=== PATIENT | female | born 1990 | race Caucasian/White ===

== ENCOUNTER 2017-02-04 20:01 | Emergency (ER) | payer MEDICAID ==
[2017-02-04 20:21] VITALS: BP 147/94
--- NOTE | 2017-02-04 20:37 | EDM.PDOC ---
[id number]: BACK PAIN Time Seen by Provider: 02/04/17 20:10 Source of Information: Reports: Patient History Limitations: Reports: No Limitations - History of Present Illness INITIAL COMMENTS - FREE TEXT/NARRATIVE: 18-year-old female with an exacerbation of chronic low back pain. She is moving , has been more active over the past several days and now has increased pain. She's been in the clinic several times, has had orthopedic consultation, MRI of her back, and has a neurosurgical consultation pending for a herniated disc in her back at the L5-S1 level. Some radiation of pain to the left leg. She is currently taking almost maximum doses of gabapentin and tramadol, although she didn't mention the tramadol to nursing. She is on a pain contract with the clinic. Onset: Gradual Severity: Moderate Associated Symptoms: Denies: Fever/Chills, Headaches, Weakness back pain Pain Score (Numeric/FACES): 8 - Related Data Allergies Allergy/AdvReac Type Severity Reaction Status Date / Time No Known Allergies Allergy Verified 02/04/17 20:53 Home Meds: Home Meds Gabapentin [Neurontin] 600 mg PO TID 10/06/13 [History] Nicotine [Nicoderm CQ] 1 patch TD DAILY 07/28/16 [History] Amitriptyline [Elavil] 50 mg PO BEDTIME 07/31/16 [History] Citalopram Hydrobromide [Celexa] 20 mg PO DAILY 09/06/16 [History] Past Medical History Respiratory History: Reports: Bronchitis, Recurrent Gastrointestinal History: Reports: None Genitourinary History: Reports: UTI, Recurrent Other Genitourinary History: hemo. 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 - Infectious Disease History Infectious Disease History: Reports: Chicken Pox - Past Surgical History HEENT Surgical History: Reports: Oral Surgery, Tonsillectomy Female Surgical History: Reports: Section, D&C, Dilitation & Evacuation, Tubal Ligation Social & Family History - Family History Family Medical History: Noncontributory - Tobacco Use Smoking Status *Q: Current Every Day Smoker Years of Tobacco use: 8 Packs/Tins Daily: 0.5 Used Tobacco, but Quit: No Second Hand Smoke Exposure: Yes - Caffeine Use Caffeine Use: Reports: Coffee - Alcohol Use Days Per Week of Alcohol Use: 0 - Recreational Drug Use Recreational Drug Use: No Drug Use in Last 12 Months: No ED ROS GENERAL - Review of Systems Review Of Systems: See Below Constitutional: Denies: Fever, Chills Respiratory: Denies: Shortness of Breath GI/Abdominal: Denies: Abdominal Pain, Nausea, Vomiting : Reports: No Symptoms Skin: Reports: No Symptoms ED EXAM,LOWER BACK PAIN/INJURY - Physical Exam Exam: See Below Exam Limited By: No Limitations General Appearance: Alert, No Apparent Distress (While sitting still) Respiratory/Chest: No Respiratory Distress Back Exam: Paraspinal Tenderness (She reacts with tenderness to palpation over the lower lumbar spine bilaterally. No significant pain with rotation against resistance either direction.) Neurological: Alert, No Motor/Sensory Deficits DTR - Lower Extremities: 2+: Knee (R), Knee (L) Course - Vital Signs Last Recorded V/S: Last Vital Signs Temp 98.9 F 02/04/17 20:11 Pulse 96 02/04/17 20:11 Resp 16 02/04/17 20:11 BP 147/94 H 02/04/17 20:11 Pulse Ox 99 02/04/17 20:11 - Re-Assessments/Exams Free Text/Narrative Re-Assessment/Exam: 02/04/17 20:35 Recommended a few days of prednisone pending her neurosurgical consultation. I will provide her with some Flexeril along with the prednisone, but I could not offer her stronger pain medication because her contract. She didn't mention the tramadol but when I asked her she had some left she said she had "a few". 02/04/17 20:36 Recommend taking 50 mg of prednisone with each morning meal for the next 3-5 days. Continue with her other current medications and one Flexeril up to 3 times daily. Followup with her primary provider and consulting physicians as scheduled. Departure - Departure Time of Disposition: 21:40 Disposition: Home, Self-Care 01 Condition: good Clinical Impression: Acute exacerbation of chronic low back pain - Discharge Information Instructions: Back Pain, Adult Referrals: Leora Wagoner NP [Primary Care Provider] - Forms: ED Department Discharge Care Plan Goals: Continue with her current medications. Take 5 pills of prednisone with your morning meal for the next 3-6 days. 1 Flexeril every 6-8 hours as needed. Recheck with neurosurgery as scheduled, or return to the clinic sooner if not improving satisfactorily. Continue with activity as tolerated including physical therapy.
== END 2017-02-04 21:03 | disposition home or self-care (01) ==
LOC: JP.ED 20:01
DX: M54.5 Low back pain (principal); G89.29 Other chronic pain; F41.9 Anxiety disorder, unspecified; F32.9 Major depressive disorder, single episode, unspecified; F17.210 Nicotine dependence, cigarettes, uncomplicated; Z98.51 Tubal ligation status; Z98.890 Other specified postprocedural states
CPT/HCPCS: 99283

== ENCOUNTER 2017-03-01 12:51 | Emergency (ER) | payer MEDICAID ==
[2017-03-01 13:02] VITALS: BP 153/95
--- NOTE | 2017-03-01 13:35 | EDM.PDOC ---
ED HPI GENERAL MEDICAL PROBLEM - General Chief Complaint: Back Pain or Injury Stated Complaint: LOW BACK PAIN Time Seen by Provider: 03/01/17 13:24 Source of Information: Reports: Patient, RN Notes Reviewed History Limitations: Reports: No Limitations - History of Present Illness INITIAL COMMENTS - FREE TEXT/NARRATIVE: 26-year-old female presents emergency department today with increasing low back pain she has a known history of chronic back pain has had an MRI follows with neurosurgery and is set up to see pain management next week. Her issue she recently went to physical therapy she's having increasing pain and she is out of her tramadol and she is unable to to get refills of her tramadol until she is evaluated by pain management from her primary care Lower Back Pain Score (Numeric/FACES): 8 - Related Data Allergies Allergy/AdvReac Type Severity Reaction Status Date / Time No Known Allergies Allergy Verified 03/01/17 13:11 Home Meds: Home Meds Gabapentin [Neurontin] 600 mg PO QID 10/06/13 [History] Nicotine [Nicoderm CQ] 1 patch TD DAILY 07/28/16 [History] Amitriptyline [Elavil] 50 mg PO BEDTIME 07/31/16 [History] Citalopram Hydrobromide [Celexa] 20 mg PO DAILY 09/06/16 [History] traMADol [Ultram] 1 tab PO Q6H 02/26/17 [History] Etodolac 1 tab PO BID 03/01/17 [History] Past Medical History Respiratory History: Reports: Bronchitis, Recurrent Genitourinary History: Reports: UTI, Recurrent Other Genitourinary History: hemo. 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 - Infectious Disease History Infectious Disease History: Reports: Chicken Pox - Past Surgical History Head Surgeries/Procedures: Reports: None HEENT Surgical History: Reports: Oral Surgery, Tonsillectomy Female Surgical History: Reports: Section, D&C, Dilitation & Evacuation, Tubal Ligation Dermatological Surgical History: Reports: None Social & Family History - Family History Family Medical History: Noncontributory - Tobacco Use Smoking Status *Q: Light Tobacco Smoker Years of Tobacco use: 8 Packs/Tins Daily: 0.2 Used Tobacco, but Quit: No Second Hand Smoke Exposure: Yes - Caffeine Use Caffeine Use: Reports: Coffee - Alcohol Use Days Per Week of Alcohol Use: 0 - Recreational Drug Use Recreational Drug Use: No Drug Use in Last 12 Months: No ED ROS GENERAL - Review of Systems Review Of Systems: See Below Respiratory: Reports: No Symptoms Cardiovascular: Reports: No Symptoms Endocrine: Reports: No Symptoms GI/Abdominal: Reports: No Symptoms Musculoskeletal: Reports: Back Pain ED EXAM,LOWER BACK PAIN/INJURY - Physical Exam Exam: See Below Exam Limited By: No Limitations General Appearance: Alert, WD/WN, No Apparent Distress Back Exam: Normal Inspection, Full Range of Motion, Muscle Spasm, Paraspinal Tenderness, Vertebral Tenderness. No: CVA Tenderness (R), CVA Tenderness (L) Course - Vital Signs Last Recorded V/S: Last Vital Signs Temp 98.7 F 03/01/17 13:10 Pulse 121 H 03/01/17 13:10 Resp 14 03/01/17 13:10 BP 153/95 H 03/01/17 13:10 Pulse Ox 99 03/01/17 13:10 Departure - Departure Time of Disposition: 13:39 Disposition: Home, Self-Care 01 Condition: Good Clinical Impression: Discogenic low back pain - Discharge Information Forms: ED Department Discharge Additional Instructions: Continue using your prescribed medications, use Ultram as needed for right to pain, try the baclofen as needed for muscle spasm. Please keep your follow-up appointment with the pain clinic call return to the emergency department with worsening of symptoms - Assessment/Plan Plan: Assessment Acuity = chronic Site and laterality = low back pain Etiology = secondary to disc bulge L5-S1 per MRI Manifestations = none Location of injury = Home Lab values = none Plan Granted prescription for tramadol and baclofen recommend she keep appointment with pain management Patient was in agreement with the plan all questions were answered, they were instructed to return to the emergency department or call for worsening symptoms. This note was dictated using [employer] voice recognition software please call with any questions.
== END 2017-03-01 13:50 | disposition home or self-care (01) ==
LOC: JP.ED 12:51
DX: M54.5 Low back pain (principal); G43.909 Migraine, unspecified, not intractable, without status migrainosus; F41.9 Anxiety disorder, unspecified; F32.9 Major depressive disorder, single episode, unspecified; F43.10 Post-traumatic stress disorder, unspecified; F17.210 Nicotine dependence, cigarettes, uncomplicated; Z98.890 Other specified postprocedural states; Z79.899 Other long term (current) drug therapy
CPT/HCPCS: 99283

== ENCOUNTER 2017-08-24 16:16 | Emergency (ER) | payer MEDICAID ==
[2017-08-24 16:52] VITALS: BP 158/98
--- NOTE | 2017-08-24 18:22 | EDM.PDOC ---
ED HPI GENERAL MEDICAL PROBLEM - General Chief Complaint: Back Pain or Injury Stated Complaint: LOWER BACK/HIP PAIN Time Seen by Provider: 08/24/17 18:00 Source of Information: Reports: Patient History Limitations: Reports: No Limitations - History of Present Illness INITIAL COMMENTS - FREE TEXT/NARRATIVE: 18-year-old female with chronic low back pain, pain is reasonably maintained with tramadol 50 mg twice daily. She has had a pain contract to the clinic for the last 6 months and according to the COST COORDINATOR she has followed the contract fairly closely. Her primary provider however has resigned from her presentation, she is seen to other providers in the last 4 days and neither would prescribe tramadol. She is in today wondering what to do. Her back is sore but not acutely worse. No urinary symptoms. Onset: Unknown/Unsure Severity: Mild Back Pain Score (Numeric/FACES): 8 - Related Data Allergies Allergy/AdvReac Type Severity Reaction Status Date / Time No Known Allergies Allergy Verified 08/24/17 17:36 Home Meds: Home Meds Gabapentin [Neurontin] 600 mg PO QID 10/06/13 [History] Nicotine [Nicoderm CQ] 1 patch TD DAILY 07/28/16 [History] Amitriptyline [Elavil] 50 mg PO BEDTIME 07/31/16 [History] Citalopram Hydrobromide [Celexa] 20 mg PO DAILY 09/06/16 [History] traMADol [Ultram] 1 tab PO Q6H 02/26/17 [History] Etodolac 1 tab PO BID 03/01/17 [History] tiZANidine HCl [Zanaflex] 1 tab PO ASDIRECTED 08/24/17 [History] Past Medical History Respiratory History: Reports: Bronchitis, Recurrent Gastrointestinal History: Reports: None Genitourinary History: Reports: UTI, Recurrent Other Genitourinary History: hemo. 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 - Infectious Disease History Infectious Disease History: Reports: Chicken Pox - Past Surgical History HEENT Surgical History: Reports: Oral Surgery, Tonsillectomy Female Surgical History: Reports: Section, D&C, Dilitation & Evacuation, Tubal Ligation Social & Family History - Family History Family Medical History: Noncontributory - Tobacco Use Smoking Status *Q: Light Tobacco Smoker Years of Tobacco use: 8 Packs/Tins Daily: 0.5 Used Tobacco, but Quit: No Second Hand Smoke Exposure: Yes - Caffeine Use Caffeine Use: Reports: Coffee - Alcohol Use Days Per Week of Alcohol Use: 0 - Recreational Drug Use Recreational Drug Use: No Drug Use in Last 12 Months: No ED ROS GENERAL - Review of Systems Review Of Systems: See Below Constitutional: Denies: Fever, Chills Respiratory: Denies: Shortness of Breath GI/Abdominal: Denies: Abdominal Pain Musculoskeletal: Reports: Back Pain Skin: Reports: No Symptoms Neurological: Reports: Other (Intermittent sciatic type pain on the left side) ED EXAM,LOWER BACK PAIN/INJURY - Physical Exam Exam: See Below Exam Limited By: No Limitations General Appearance: Alert, No Apparent Distress Respiratory/Chest: No Respiratory Distress Back Exam: Paraspinal Tenderness (She does have paraspinal tenderness over the lateral lower lumbar spine, fairly full range of motion with some moderate pulling sensation) Neurological: No Motor/Sensory Deficits Course - Vital Signs Last Recorded V/S: Last Vital Signs Temp 97.0 F 08/24/17 17:33 Pulse 96 08/24/17 17:33 Resp 16 08/24/17 17:33 BP 158/98 H 08/24/17 17:33 Pulse Ox 99 08/24/17 17:33 - Re-Assessments/Exams Free Text/Narrative Re-Assessment/Exam: 08/24/17 18:20 Reviewed COST COORDINATOR and the clinic records. Its unfortunate that another provider cannot take over this patient's care as was provided by her previous provider especially in light that she seems to have been following her contract. I did give her 15 tramadol to use up to twice daily and encouraged her to make them last as long as possible and continue to look for a primary provider that can help her. Departure - Departure Time of Disposition: 18:43 Disposition: Home, Self-Care 01 Condition: Good Clinical Impression: Discogenic low back pain - Discharge Information Instructions: Back Pain, Adult, [id number] Referrals: PCP,None [Primary Care Provider] - Forms: ED Department Discharge Care Plan Goals: Stay as active as possible, reconsider your physical therapy treatments and use tramadol as prescribed sparingly. Continue to search for a primary provider that is willing to continue your care.
== END 2017-08-24 18:43 | disposition home or self-care (01) ==
LOC: JP.ED 16:16
DX: M54.5 Low back pain (principal); F17.210 Nicotine dependence, cigarettes, uncomplicated; Z79.899 Other long term (current) drug therapy
CPT/HCPCS: 99283

== ENCOUNTER 2017-10-11 11:32 | Emergency (ER) | payer MEDICAID ==
[2017-10-11 11:47] VITALS: BP 142/100
--- NOTE | 2017-10-11 12:22 | EDM.PDOC ---
ED HPI GENERAL MEDICAL PROBLEM - General Chief Complaint: Back Pain or Injury Stated Complaint: BACK PAIN Time Seen by Provider: 10/11/17 11:50 Source of Information: Reports: Patient History Limitations: Reports: No Limitations - History of Present Illness INITIAL COMMENTS - FREE TEXT/NARRATIVE: 27-year-old female with chronic back pain, pain has been controlled with low- dose tramadol over the past year but she lost her provider. 44 doses were given to her by Dr. Sinclair a month ago, she was hoping to establish pain control with a chronic pain specialist on 27 September but didn't make her appointment. The pain is persistent, not worse but not better. It's very low in her back and radiates somewhat to the left buttock. No neurologic symptoms or radiculopathy. Onset: Unknown/Unsure Location: Reports: Back Quality: Reports: Ache, Burning Severity: Mild Worsens with: Reports: Movement Associated Symptoms: Denies: Fever/Chills, Headaches, Nausea/Vomiting, Shortness of Breath Lower Back Pain Score (Numeric/FACES): 9 - Related Data Allergies Allergy/AdvReac Type Severity Reaction Status Date / Time No Known Allergies Allergy Verified 10/11/17 11:47 Home Meds: Home Meds Gabapentin [Neurontin] 600 mg PO QID 10/06/13 [History] Nicotine [Nicoderm CQ] 1 patch TD DAILY 07/28/16 [History] Amitriptyline [Elavil] 25 mg PO BEDTIME 07/31/16 [History] traMADol [Ultram] 1 tab PO Q6H 02/26/17 [History] tiZANidine HCl [Zanaflex] 1 tab PO ASDIRECTED 08/24/17 [History] *Vitamin D PO WEEKLY 10/11/17 [History] Past Medical History Respiratory History: Reports: Bronchitis, Recurrent Gastrointestinal History: Reports: None Genitourinary History: Reports: UTI, Recurrent Other Genitourinary History: hemo. 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 - Infectious Disease History Infectious Disease History: Reports: Chicken Pox - Past Surgical History HEENT Surgical History: Reports: Oral Surgery, Tonsillectomy Female Surgical History: Reports: Section, D&C, Dilitation & Evacuation, Tubal Ligation Social & Family History - Family History Family Medical History: Noncontributory - Tobacco Use Smoking Status *Q: Unknown Ever Smoked Years of Tobacco use: 8 Packs/Tins Daily: 0.5 Used Tobacco, but Quit: No Second Hand Smoke Exposure: Yes - Caffeine Use Caffeine Use: Reports: Coffee - Alcohol Use Days Per Week of Alcohol Use: 0 - Recreational Drug Use Recreational Drug Use: No Drug Use in Last 12 Months: No ED ROS GENERAL - Review of Systems Review Of Systems: See Below Constitutional: Denies: Fever Respiratory: Denies: Shortness of Breath, Cough Cardiovascular: Denies: Chest Pain GI/Abdominal: Denies: Abdominal Pain, Nausea, Vomiting : Reports: No Symptoms Skin: Denies: Rash Neurological: Reports: No Symptoms ED EXAM,LOWER BACK PAIN/INJURY - Physical Exam Exam: See Below Exam Limited By: No Limitations General Appearance: Alert, No Apparent Distress Respiratory/Chest: No Respiratory Distress Cardiovascular: Tachycardia (What) Back Exam: Paraspinal Tenderness, Other (Tenderness to palpation over L4-L5 area into the left sacroiliac area). No: Vertebral Tenderness Course - Vital Signs Last Recorded V/S: Last Vital Signs Temp 98.1 F 10/11/17 11:45 Pulse 126 H 10/11/17 11:45 Resp 14 10/11/17 11:45 BP 142/100 H 10/11/17 11:45 Pulse Ox 100 10/11/17 11:45 - Re-Assessments/Exams Free Text/Narrative Re-Assessment/Exam: 10/11/17 12:31 Discussed her condition with Dr. Sinclair, and all so left the message to talk with Job Espinoza who was trying to get hold of the patient today. She is given 15 tramadol to take over the next 2 weeks until she can establish a provider or another source of treatment. Departure - Departure Time of Disposition: 12:31 Disposition: Home, Self-Care 01 Condition: Good Clinical Impression: Discogenic low back pain - Discharge Information Instructions: Back Pain, Adult, [id number] Referrals: PCP,None [Primary Care Provider] - Forms: ED Department Discharge Care Plan Goals: Take tramadol as prescribed, you need to establish a provider in the next 2 weeks if you want medications to continue.
== END 2017-10-11 12:32 | disposition home or self-care (01) ==
LOC: JP.ED 11:32
DX: M54.5 Low back pain (principal); F32.9 Major depressive disorder, single episode, unspecified; Z77.22 Contact with and (suspected) exposure to environmental tobacco smoke (acute) (chronic); Z79.899 Other long term (current) drug therapy
CPT/HCPCS: 99283

== ENCOUNTER 2019-03-12 16:06 | Emergency (ER) | payer MEDICAID ==
[2019-03-12 16:46] VITALS: BP 148/90; PULSE 106
[2019-03-12] MEDS ORDERED: Ketorolac 60 MG/2 ML SDV IM ONE (17:02)
--- NOTE | 2019-03-12 17:06 | EDM.PDOC ---
ED HPI GENERAL MEDICAL PROBLEM - General Chief Complaint: Back Pain or Injury Stated Complaint: LOWER BACK, HIP AND KNEE PAIN Time Seen by Provider: 03/12/19 16:58 Source of Information: Reports: Patient, RN Notes Reviewed History Limitations: Reports: No Limitations - History of Present Illness INITIAL COMMENTS - FREE TEXT/NARRATIVE: 28-year-old female presents emergency Department a complaint of low back pain, left is greater than the right side of the history of chronic back pain she has been using ibuprofen and Tylenol without much relief she like to try something else going on for several days Hip Pain Score (Numeric/FACES): 8 - Related Data Allergies Allergy/AdvReac Type Severity Reaction Status Date / Time No Known Allergies Allergy Verified 10/11/17 11:47 Home Meds: Home Meds Gabapentin [Neurontin] 600 mg PO QID 10/06/13 [History] Baclofen 10 mg PO TID 03/12/19 [History] Ibuprofen 800 mg PO ASDIRECTED PRN 03/12/19 [History] Past Medical History Respiratory History: Reports: Bronchitis, Recurrent Gastrointestinal History: Reports: None Genitourinary History: Reports: UTI, Recurrent Other Genitourinary History: hemo. 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 - Infectious Disease History Infectious Disease History: Reports: Chicken Pox - Past Surgical History Head Surgeries/Procedures: Reports: None HEENT Surgical History: Reports: Oral Surgery, Tonsillectomy Female Surgical History: Reports: Section, D&C, Dilitation & Evacuation, Tubal Ligation Dermatological Surgical History: Reports: None Social & Family History - Family History Family Medical History: Noncontributory - Tobacco Use Smoking Status *Q: Heavy Tobacco Smoker Years of Tobacco use: 9 Packs/Tins Daily: 1 - Caffeine Use Caffeine Use: Reports: Coffee - Recreational Drug Use Recreational Drug Use: No ED ROS GENERAL - Review of Systems Review Of Systems: See Below Constitutional: Reports: No Symptoms Respiratory: Reports: No Symptoms Cardiovascular: Reports: No Symptoms GI/Abdominal: Reports: No Symptoms Musculoskeletal: Reports: Back Pain Neurological: Reports: No Symptoms ED EXAM,LOWER BACK PAIN/INJURY - Physical Exam Exam: See Below Exam Limited By: No Limitations General Appearance: Alert, WD/WN, No Apparent Distress Respiratory/Chest: No Respiratory Distress Back Exam: Normal Inspection, Decreased Range of Motion, Muscle Spasm, Paraspinal Tenderness. No: Full Range of Motion, CVA Tenderness (R), CVA Tenderness (L), Vertebral Tenderness Course - Vital Signs Last Recorded V/S: Last Vital Signs Temp 98.3 F 03/12/19 16:52 Pulse 106 H 03/12/19 16:52 Resp 13 03/12/19 16:52 BP 148/90 H 03/12/19 16:52 Pulse Ox 98 03/12/19 16:52 - Orders/Labs/Meds Meds: Medications Discontinued Medications Generic Name Dose Route Start Last Admin Trade Name Eryn PRN Reason Stop Dose Admin Ketorolac Tromethamine 60 mg 03/12/19 17:02 Toradol IM 03/12/19 17:03 ONETIME ONE Departure - Departure Time of Disposition: 17:05 Disposition: Home, Self-Care 01 Condition: Fair Clinical Impression: Discogenic low back pain - Discharge Information Instructions: Chronic Back Pain Referrals: Emilio Sinclair Sr, MD [Primary Care Provider] - Additional Instructions: Continue to use Tylenol or ibuprofen for baseline pain control try the Ultram or tramadol for breakthrough pain, Please followup with your primary care provider in 3-5 days if not better, please call return to the emergency department with worsening of symptoms. - Assessment/Plan Plan: Assessment Acuity = acute on chronic Site and laterality = low back pain Etiology = etiology Manifestations = none Location of injury = Home Lab values = none Plan Provided a 60 mg Toradol IM 1 prescription written for Ultram one tab by mouth every 6 hours when necessary total #15 follow-up with primary care in the next 2 -5 days for reevaluation This note was dictated using [employer]Test recognition software please call with any questions on syntax or grammar.
== END 2019-03-12 17:13 | disposition home or self-care (01) ==
LOC: JP.ED 16:06
DX: G89.29 Other chronic pain (principal); M54.5 Low back pain; F41.9 Anxiety disorder, unspecified; F32.9 Major depressive disorder, single episode, unspecified; F17.210 Nicotine dependence, cigarettes, uncomplicated; Z79.899 Other long term (current) drug therapy
CPT/HCPCS: 96372; 99283; J1885

== ENCOUNTER 2019-05-30 10:03 | Emergency (ER) | payer MEDICAID ==
[2019-05-30 10:29] VITALS: BP 134/91; PULSE 123
--- NOTE | 2019-05-30 11:22 | EDM.PDOC ---
ED HPI GENERAL MEDICAL PROBLEM - General Chief Complaint: Back Pain or Injury Stated Complaint: BULGING DISC IN BACK Time Seen by Provider: 05/30/19 11:15 Source of Information: Reports: Patient History Limitations: Reports: No Limitations - History of Present Illness INITIAL COMMENTS - FREE TEXT/NARRATIVE: Honey is a 28 year old female, hx of chronic back pain reported bulging disc, here with increased pain to left lower back radiating down left leg. No weakness, no loss of bowel or bladder control. Pain not relieved with Tylenol. Henry works well but has none at home and PCP not in clinic today. Denies any new or significant trauma. Onset: Gradual Lower Back Pain Score (Numeric/FACES): 8 - Related Data Allergies Allergy/AdvReac Type Severity Reaction Status Date / Time No Known Allergies Allergy Verified 05/30/19 11:10 Home Meds: Home Meds Gabapentin [Neurontin] 600 mg PO QID 10/06/13 [History] Baclofen 10 mg PO TID 03/12/19 [History] Ibuprofen 800 mg PO ASDIRECTED PRN 03/12/19 [History] Past Medical History Respiratory History: Reports: Bronchitis, Recurrent Gastrointestinal History: Reports: None Genitourinary History: Reports: UTI, Recurrent Other Genitourinary History: hemo. 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 - Infectious Disease History Infectious Disease History: Reports: Chicken Pox - Past Surgical History HEENT Surgical History: Reports: Oral Surgery, Tonsillectomy Female Surgical History: Reports: Section, D&C, Dilitation & Evacuation, Tubal Ligation Social & Family History - Family History Family Medical History: Noncontributory - Tobacco Use Smoking Status *Q: Light Tobacco Smoker Years of Tobacco use: 10 Packs/Tins Daily: 0.5 - Caffeine Use Caffeine Use: Reports: Coffee - Recreational Drug Use Recreational Drug Use: No ED ROS GENERAL - Review of Systems Review Of Systems: ROS reveals no pertinent complaints other than HPI. ED EXAM,LOWER BACK PAIN/INJURY - Physical Exam Exam: See Below Exam Limited By: No Limitations General Appearance: Alert, WD/WN, No Apparent Distress Eye Exam: Bilateral Eye: EOMI Neck: Normal Inspection, Supple, Non-Tender Respiratory/Chest: No Respiratory Distress Cardiovascular: Regular Rate, Rhythm Back Exam: Normal Inspection, Full Range of Motion, Vertebral Tenderness, Other (left lower lumbar tenderness to palpation, tenderness to left sciatica. Strength 5/5, DTR's intact, sensation intact bilaterally) Neurological: Alert, Normal Mood/Affect, Normal Dorsiflexion, CN II-XII Intact, Normal Gait, Normal Reflexes, Oriented x 3 Psychiatric: Normal Affect, Normal Mood Skin Exam: Warm, Dry, Intact Lymphatic: No Adenopathy Course - Vital Signs Last Recorded V/S: Last Vital Signs Temp 35.3 C 05/30/19 11:10 Pulse 123 H 05/30/19 11:10 Resp 14 05/30/19 11:10 BP 134/91 H 05/30/19 11:10 Pulse Ox 99 05/30/19 11:10 Exacerbation of chronic back pain. No signs concerning for cauda equina, no neuro/focal deficits. Tramadol prescribed. Follow up with PCP on Sunday. Patient given work note for today. Reasons to return to the ED discussed, patient agreeable and discharged in stable condition. Departure - Departure Time of Disposition: 11:30 Disposition: Home, Self-Care 01 Condition: Fair Clinical Impression: Lumbar back pain with radiculopathy affecting left lower extremity - Discharge Information Instructions: Chronic Back Pain, [id number], Lumbosacral Radiculopathy Referrals: Emilio Sinclair Sr, MD [Primary Care Provider] - Forms: ED Department Discharge
== END 2019-05-30 11:28 | disposition home or self-care (01) ==
LOC: JP.ED 10:03
DX: M54.16 Radiculopathy, lumbar region (principal); F17.200 Nicotine dependence, unspecified, uncomplicated
CPT/HCPCS: 99283

== ENCOUNTER 2020-02-03 10:50 | Emergency (ER) | payer MEDICAID ==
[2020-02-03 11:06] VITALS: BP 129/91; PULSE 107
--- NOTE | 2020-02-03 11:39 | EDM.PDOC ---
ED HPI GENERAL MEDICAL PROBLEM - General Chief Complaint: Genitourinary Problem Stated Complaint: KIDNEY INFECTION (POSSIBLE) Time Seen by Provider: 02/03/20 11:05 Source of Information: Reports: Patient History Limitations: Reports: No Limitations - History of Present Illness INITIAL COMMENTS - FREE TEXT/NARRATIVE: 29-year-old female who believes she has been having waxing and waning urinary tract infection symptoms for the past couple of months. She was evaluated at the clinic and was told she had some "bacteria in her urine" and was given a trial of Bactrim but has not improved. Today she felt like she was having chills and fever and some intermittent flank pain so she came in to be seen. No nausea or vomiting, no significant dysuria. 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 - Infectious Disease History Infectious Disease History: Reports: Chicken Pox - Past Surgical History Head Surgeries/Procedures: Reports: None HEENT Surgical History: Reports: Oral Surgery, Tonsillectomy Respiratory Surgical History: Reports: None GI Surgical History: Reports: None Female Surgical History: Reports: Section, D&C, Dilitation & Evacuation, Tubal Ligation Endocrine Surgical History: Reports: None Musculoskeletal Surgical History: Reports: None Dermatological Surgical History: Reports: None Social & Family History - Family History Family Medical History: Noncontributory - Tobacco Use Smoking Status *Q: Current Every Day Smoker Years of Tobacco use: 10 Packs/Tins Daily: 1 Used Tobacco, but Quit: No - Caffeine Use Caffeine Use: Reports: Coffee, Soda ED ROS GENERAL - Review of Systems Review Of Systems: See Below Constitutional: Reports: Fever, Chills, Malaise. Denies: Decreased Appetite HEENT: Reports: No Symptoms Respiratory: Denies: Shortness of Breath Cardiovascular: Denies: Chest Pain GI/Abdominal: Denies: Abdominal Pain, Nausea : Reports: Flank Pain, Other (She also feels persistent urgency and lack of complete emptying of her bladder) Musculoskeletal: Reports: Back Pain Skin: Reports: No Symptoms Neurological: Denies: Dizziness, Headache ED EXAM, GENERAL - Physical Exam Exam: See Below Exam Limited By: No Limitations General Appearance: Alert, No Apparent Distress Head: Atraumatic Respiratory/Chest: Lungs Clear Cardiovascular: Regular Rate, Rhythm GI/Abdominal: Tender (Some discomfort with suprapubic palpation but no guarding) Back Exam: CVA Tenderness (L) (Responsive discomfort with percussion of the left CVA area) Neurological: Alert, Oriented Psychiatric: Normal Affect, Normal Mood Skin Exam: Warm, Dry Course - Vital Signs Last Recorded V/S: Last Vital Signs Temp 98.5 F 02/03/20 11:10 Pulse 107 H 02/03/20 11:10 Resp 16 02/03/20 11:10 BP 129/91 H 02/03/20 11:10 Pulse Ox 100 02/03/20 11:10 - Orders/Labs/Meds Labs: Laboratory Tests 02/03/20 02/03/20 02/03/20 Range/Units 11:19 11:25 11:25 WBC 8.3 (4.5-11.0) K/uL RBC 4.50 (3.30-5.50) M/uL Hgb 14.0 D (12.0-15.0) g/dL Hct 42.5 (36.0-48.0) % MCV 94 (80-98) fL MCH 31 (27-31) pg MCHC 33 (32-36) % Plt Count 185 (150-400) K/uL Neut % (Auto) 53 (36-66) % Lymph % (Auto) 35 (24-44) % Ida % (Auto) 11 H (2-6) % Eos % (Auto) 1 L (2-4) % Baso % (Auto) 1 (0-1) % Sodium 140 (140-148) mmol/L Potassium 4.8 (3.6-5.2) mmol/L Chloride 106 (100-108) mmol/L Carbon Dioxide 23 (21-32) mmol/L Anion Gap 10.8 (5.0-14.0) mmol/L BUN 12 D (7-18) mg/dL Creatinine 0.8 (0.6-1.0) mg/dL Est Cr Clr Drug Dosing 91.68 mL/min Estimated GFR (MDRD) > 60 (>60) Glucose 96 (74-106) mg/dL Calcium 8.7 (8.5-10.1) mg/dL Total Bilirubin 0.4 (0.2-1.0) mg/dL AST 11 L (15-37) U/L ALT 18 (12-78) U/L Alkaline Phosphatase 81 D (46-116) U/L Total Protein 7.3 (6.4-8.2) g/dL Albumin 3.9 (3.4-5.0) g/dL Globulin 3.4 (2.3-3.5) g/dL Albumin/Globulin Ratio 1.1 L (1.2-2.2) Urine Color Yellow (YELLOW) Urine Appearance Clear (CLEAR) Urine pH 6.5 (5.0-8.0) Ur Specific [place] 1.015 (1.008-1.030) Urine Protein Negative (NEGATIVE) mg/dL Urine Glucose (UA) Negative (NEGATIVE) mg/dL Urine Ketones Negative (NEGATIVE) mg/dL Urine Occult Blood Negative (NEGATIVE) Urine Nitrite Negative (NEGATIVE) Urine Bilirubin Negative (NEGATIVE) Urine Urobilinogen 0.2 (0.2-1.0) EU/dL Ur Leukocyte Esterase Negative (NEGATIVE) Urine RBC 0-5 (0-5) Urine WBC Not seen (0-5) Ur Epithelial Cells Rare - Re-Assessments/Exams Free Text/Narrative Re-Assessment/Exam: 02/03/20 11:38 Patient does not look toxic, she is afebrile. A UA was obtained by clean-catch as well as a CBC and CMP. 02/03/20 12:17 Explained to the patient that her urine is clean, CBC and CMP are normal. I think she needs a good OB exam, and possibly a urology referral but there is nothing acute that needs treatment at this time. Departure - Departure Time of Disposition: 12:34 Disposition: Home, Self-Care 01 Clinical Impression: History of urinary urgency - Discharge Information Instructions: Urinary Frequency, Adult Referrals: Emilio Sinclair Sr, MD [Primary Care Provider] - Forms: ED Department Discharge Care Plan Goals: Consider a consult to ASSISTANT PROFESSOR OF ART for a baseline obstetric exam and then urology consultation if symptoms are not improving. Sepsis Event Note - Evaluation Sepsis Screening Result: No Definite Risk - Focused Exam Vital Signs: Vital Signs Temp Pulse Resp BP Pulse Ox 02/03/20 11:10 98.5 F 107 H 16 129/91 H 100 02/03/20 11:05 98.5 F 107 H 16 129/91 H 100 Date Exam was Performed: 02/03/20 Time Exam was Performed: 14:52
== END 2020-02-03 12:34 | disposition home or self-care (01) ==
LOC: JP.ED 10:50
DX: R10.30 Lower abdominal pain, unspecified (principal); Z87.448 Personal history of other diseases of urinary system; E66.9 Obesity, unspecified; Z68.33 Body mass index [BMI] 33.0-33.9, adult; F17.210 Nicotine dependence, cigarettes, uncomplicated
CPT/HCPCS: 36415; 80053; 81001; 85025; 99283

== ENCOUNTER 2022-03-05 19:47 | Emergency (ER) | payer MEDICAID ==
[2022-03-05 20:07] VITALS: BP 137/95; PULSE 118
[2022-03-05] MEDS ORDERED: Lidocaine 5% 700 MG Patch TRDERM ONE (21:13)
[2022-03-05] MEDS ORDERED: Ketorolac 30 MG/ML SDV IM ONE (21:13)
== END 2022-03-05 21:55 | disposition home or self-care (01) ==
LOC: JP.ED 19:47
DX: M54.42 Lumbago with sciatica, left side (principal); F17.210 Nicotine dependence, cigarettes, uncomplicated; E66.9 Obesity, unspecified; Z79.899 Other long term (current) drug therapy
CPT/HCPCS: 96372; 99283; A9270; J1885; 99282

== ENCOUNTER 2022-08-06 16:20 | Emergency (ER) | payer MEDICAID ==
[2022-08-06 17:28] VITALS: BP 143/89; PULSE 109
[2022-08-06] MEDS ORDERED: Ketorolac 30 MG/ML SDV IM ONE (18:05)
== END 2022-08-06 18:36 | disposition home or self-care (01) ==
LOC: JP.ED 16:20
DX: K04.7 Periapical abscess without sinus (principal); E66.9 Obesity, unspecified; Z68.26 Body mass index [BMI] 26.0-26.9, adult; Z79.899 Other long term (current) drug therapy; Z87.891 Personal history of nicotine dependence
CPT/HCPCS: 96372; 99282; J1885

== ENCOUNTER 2022-10-20 12:06 | Emergency (ER) | payer MEDICAID ==
[2022-10-20 12:59] VITALS: BP 118/85; PULSE 100
== END 2022-10-20 13:58 | disposition home or self-care (01) ==
LOC: JP.ED 12:06
DX: T58.8X1A Toxic effect of carbon monoxide from other source, accidental (unintentional), initial encounter (principal); E66.9 Obesity, unspecified; Z68.25 Body mass index [BMI] 25.0-25.9, adult
CPT/HCPCS: 82803; 99283

== ENCOUNTER 2023-07-31 12:48 | Emergency (ER) | payer MEDICAID ==
[2023-07-31 13:05] VITALS: BP 146/94; PULSE 107
[2023-07-31] MEDS ORDERED: Ketorolac 30 MG/ML SDV IM ONE (13:26)
[2023-07-31] MEDS ORDERED: Methocarbamol 500 MG Tab PO ONE (13:26)
== END 2023-07-31 14:28 | disposition home or self-care (01) ==
LOC: JP.ED 12:48
DX: M25.512 Pain in left shoulder (principal); E66.9 Obesity, unspecified; F17.210 Nicotine dependence, cigarettes, uncomplicated; Z68.23 Body mass index [BMI] 23.0-23.9, adult; Z79.899 Other long term (current) drug therapy
CPT/HCPCS: 73030; 96372; 99283; A9270; J1885

== ENCOUNTER 2024-04-26 16:00 | Emergency (ER) | payer MEDICAID ==
[2024-04-26 16:13] VITALS: BP 113/82; PULSE 78
[2024-04-26] MEDS: Ketorolac 30 MG/ML SDV IM ONE (17:07)
== END 2024-04-26 17:32 | disposition home or self-care (01) ==
LOC: JP.ED 16:00
DX: S90.32XA Contusion of left foot, initial encounter (principal); E66.9 Obesity, unspecified; F17.210 Nicotine dependence, cigarettes, uncomplicated; Z68.23 Body mass index [BMI] 23.0-23.9, adult; Z79.899 Other long term (current) drug therapy; X58.XXXA Exposure to other specified factors, initial encounter
CPT/HCPCS: 73630; 96372; 99283; J1885